=== PATIENT | male | born 1995 | race Caucasian/White ===

== ENCOUNTER 2024-05-10 16:06 | Emergency (ER) | payer OTHER, SELFPAY ==
--- NOTE | ~2024-05-10 | XR_ITS ---
EXAM: XR foot RT min 3V DATE: 05/10/2024 16:36 HISTORY: fall [employer] . COMPARISON: None available. FINDINGS: Normal mineralization. No fracture or dislocation. No lytic or blastic lesion. Joint space s are maintained. No erosion or periosteal change. Soft tissues within normal limits. IMPRESSION: No acute osseous finding in the right foot. Reviewed, dictated and finalized at location K.
--- NOTE | ~2024-05-10 | CT_ITS ---
CT OF the right foot EXAMINATION: CT foot RT wo con DATE: 05/10/2024 19:02 INDICATION: Fall, injury, negative x-ray TECHNIQUE: Computed tomography (CT) of the right foot was performed without intravenous contrast. Aut omated exposure control and iterative reconstruction technique were employed. The dose-length product was 535.65 mGy-cm. COMPARISON: X-ray right foot, same date FINDINGS: Normal mineralization. Nondisplaced fracture of the cuboid, oriented the sagittal plane. No other fra cture detected. No dislocation. Joint spaces are maintained. No osseous erosion or suspicious periost eal change. No lytic or blastic lesion. The major flexor and extensor tendons appear to be intact. IMPRESSION: Nondisplaced cuboid fracture. Reviewed, dictated and finalized at location K.
[2024-05-10 16:17] VITALS: BP 136/82; PULSE 82; RESP 18; TEMP 36.3; O2SAT 100
[2024-05-10] MEDS: HYDROcodone/acetaminophen (*CRX) 5-325 MG TABLET 1 TAB PO (16:27)
[2024-05-10] MEDS: IBUPROFEN 600 MG TABLET PO (16:29)
--- NOTE | 2024-05-10 16:41 | ED.LOWEXIN ---
HPI - Extremity Injury (Lower) General Chief Complaint: Extremity Injury, Lower <Tammy Batista APRN - Last Filed: 05/10/24 16:47> Stated Complaint: R foot pain and injury <Tammy Batista APRN - Last Filed: 05/10/24 16:47> Time Seen by Provider: 05/10/24 16:10 <Tammy Batista APRN - Last Filed: 05/10/24 16:47> Focused HPI: Patient is a 28-year-old male who reports he fell off a ladder prior to arrival. He reports he was approximately 4 rings up on the ladder when he reached for a branch and fell to the ground. Patient reports he has a bump on the dorsal portion of his R foot and it is starting to bruise. He reports he is unable to put any pressure on it. GENERAL: Well-appearing, well-nourished, and in no acute distress. HEAD: Normocephalic, atraumatic. CHEST: Clear to auscultation. ?No respiratory distress. HEART: Regular rate and rhythm.? NEURO: ?Alert and oriented x3. SKIN: Patient has a large golf ball size lump on the right dorsal portion of his right foot that has surrounding reddish/mild bluish-colored tissue. He endorses significant pain upon flexion, extension, abduction, and abduction when foot is manipulated. Patient screened in triage and initial orders placed.? ?Additional care and disposition to be based upon?diagnostic testing and treatment. <Tammy Batista APRN - Last Filed: 05/10/24 16:47> Related Data Home Medications: Home Medications Medication Instructions Recorded Confirmed turmeric 400 mg capsule See Rx Instructions PO .COMPLEX 03/13/21 05/01/21 <Tammy Batista APRN - Last Filed: 05/10/24 16:47> Allergies/Adverse Reactions: Allergies Allergy/AdvReac Type Severity Reaction Status Date / Time methylphenidate Allergy Hives Verified 05/10/24 16:08 [From Ritalin] <Tammy Batista APRN - Last Filed: 05/10/24 16:47> Review of Systems Review of Systems: CONSTITUTIONAL: Denies fever MUSCULOSKELETAL: Reports joint pain, and myalgia. NEUROLOGIC: Denies numbness, or weakness. <Kasey Conde PA-C - Last Filed: 05/10/24 21:31> All systems reviewed & are unremarkable except as noted in HPI and below <Kasey Conde PA-C - Last Filed: 05/10/24 21:31> PMFSH Past Medical History Medical History: Medical History Muscle spasm <Tammy Batista APRN - Last Filed: 05/10/24 16:47> Family History Family History: Family History Mother Cancer Diabetes mellitus Thyroid disorder Grandparent Cancer Diabetes mellitus Hypertension Heart disease Thyroid disorder Grandparent Cancer Diabetes mellitus Hypertension Depression Anxiety Cerebrovascular accident <Tammy Batista APRN - Last Filed: 05/10/24 16:47> Social History Social History: Social History Smoking status: Never smoker Alcohol intake: current Alcohol use details: drinks 1/2 bottle of wine a month Substance use: never Living arrangements: with roommate(s) Occupation/Education: occupation 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 HEAD: Normocephalic, atraumatic. EYES: EOMI. EXTREMITIES: Normal range of motion. No obvious deformity. Normal DP pulse. Normal sensation SKIN: Warm, dry, no rash. NEURO: No focal deficits. Alert and oriented x3. PSYCH: Normal mood and affect <Kasey Conde PA-C - Last Filed: 05/10/24 21:31> Course Course Emergency Course: Patient updated on his workup and agrees with plan of care <Kasey Conde PA-C - Last Filed: 05/10/24 21:31> Vital Signs Vital signs: Vital S
[2024-05-10] MEDS: ACETAMINOPHEN 325 MG TABLET 650 MG PO (19:12)
[2024-05-10 20:51] VITALS: BP 132/67; PULSE 78; RESP 18; O2SAT 100
== END 2024-05-10 21:36 | disposition home or self-care (01) ==
PROVIDERS: Emergency Provider Physician Assistant; PCP Nurse Practitioner
DX: S92.214A Nondisplaced fracture of cuboid bone of right foot, initial encounter for closed fracture (principal); W11.XXXA Fall on and from ladder, initial encounter
CPT/HCPCS: 29515; 73630; 73700; 99284; A9270